=== PATIENT | male | born 2000 | race Two or more races ===

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

== ENCOUNTER 2021-10-12 15:18 | Emergency (ER) | payer MEDICAID ==
[~2021-10-12] VITALS: Ht 188 cm; Wt 113.4 kg
[2021-10-12] MEDS ORDERED: predniSONE 20 MG TABLET ONE (15:44)
[2021-10-12] MEDS ORDERED: ALBUTEROL FS 2.5 MG/3 ML VIAL.NEB NEB ONE (16:00)
[2021-10-12] MEDS ORDERED: predniSONE 20 MG TABLET PO ONE (16:00)
[2021-10-12] MEDS ORDERED: ALBUTEROL FS 2.5 MG/3 ML VIAL.NEB ONE (16:25)
[2021-10-12] MEDS ORDERED: PRED20TA PO (16:48)
[2021-10-12] MEDS ORDERED: ALBU18HF2 INH (16:48)
[2021-10-12 16:52] VITALS: BP 135/76
== END 2021-10-12 16:58 | disposition home or self-care (01) ==
LOC: ER 15:20
DX: J20.9 Acute bronchitis, unspecified (principal); R06.02 Shortness of breath; Z20.822 Contact with and (suspected) exposure to COVID-19; J45.909 Unspecified asthma, uncomplicated; Z87.891 Personal history of nicotine dependence
CPT/HCPCS: 71045; 94640; 94799; 99284; C9803; J7512; U0003

== ENCOUNTER 2025-03-31 13:37 | Emergency (ER) | payer MEDICAID ==
[~2025-03-31] VITALS: Ht 188 cm; Wt 87.1 kg
[~2025-03-31 13:37] MED LIST: ALBU18HF2 INH; OFLO5DRO5 LEFT EAR; PRED20TA PO
[2025-03-31] MEDS ORDERED: ACETAMINOPHEN ES 500 MG TABLET ONE (14:26)
[2025-03-31] MEDS ORDERED: MAG HYDROX/AL HYDROX/SIMETH 30 ML UDC ONE (14:26)
[2025-03-31] MEDS ORDERED: KETOROLAC TROMETHAMINE 15 MG/ML VIAL ONE (14:26)
[2025-03-31] MEDS ORDERED: LIDOCAINE VISCOUS 2% UD 15 ML UDC ONE (14:26)
[2025-03-31] MEDS ORDERED: ONDANSETRON HCL/PF 4 MG/2 ML VIAL ONE ×2 (14:26→16:32)
[2025-03-31] MEDS ORDERED: FAMOTIDINE/PF INJ 20 MG/2 ML VIAL IV ONE (14:27)
[2025-03-31] MEDS ORDERED: LORAZEPAM INJ 2 MG/ML VIAL ONE (14:27)
[2025-03-31 14:38] LABS: CALCIUM, SERUM 9.9 mg/dL (8.5-10.1); CREATININE 1.4 mg/dL (0.6-1.3); SODIUM SERUM 138.0 mmol/L (136-145); UREA NITROGEN, BLOOD 14.0 mg/dL (7-18)
[2025-03-31] MEDS: FAMOTIDINE/PF INJ 20 MG/2 ML VIAL IV ONE (14:41)
[2025-03-31] MEDS: LORAZEPAM INJ 2 MG/ML VIAL IV ONE (14:41)
[2025-03-31] MEDS: IV NS 0.9% 1,000 ML BAG IV ONE (14:41)
[2025-03-31] MEDS: KETOROLAC TROMETHAMINE 15 MG/ML VIAL IV ONE (14:42)
[2025-03-31] MEDS: ONDANSETRON HCL/PF 4 MG/2 ML VIAL IVP ONE ×2 (14:42→16:35)
[2025-03-31 14:44] LABS: ASPARTATE AMINOTRANSFERASE 14.0 U/L (15-37); INR 1.01 (0.91-1.10); TOTAL PROTEIN, SERUM 8.8 g/dL (6.4-8.2)
[2025-03-31] MEDS: LIDOCAINE VISCOUS 2% UD 15 ML UDC MM ONE (15:19)
[2025-03-31] MEDS: ACETAMINOPHEN ES 500 MG TABLET PO ONE (15:20)
[2025-03-31] MEDS: MAG HYDROX/AL HYDROX/SIMETH 30 ML UDC PO ONE (15:20)
[2025-03-31 15:42] LABS: PLATELET COUNT (AUTO) 419 K/uL (150-450); RED BLOOD CELL COUNT(AUTO) 5.69 MIL/uL (4.5-6.0); RED CELL DISTRIBUTION WIDTH 12.9 % (11.5-15.0); WHITE BLOOD COUNT (AUTO) 7.9 K/uL (4.3-11.0)
[2025-03-31] MEDS ORDERED: ONDA4TAB5 PO (16:29)
[2025-03-31] MEDS ORDERED: FAMO20TA80 PO (16:29)
[2025-03-31 17:01] VITALS: BP 125/81; TEMP 98.2; O2SAT 99
== END 2025-03-31 17:01 | disposition home or self-care (01) ==
LOC: ER 13:48
DX: F10.10 Alcohol abuse, uncomplicated (principal); R11.2 Nausea with vomiting, unspecified; F12.90 Cannabis use, unspecified, uncomplicated; J45.909 Unspecified asthma, uncomplicated; K29.70 Gastritis, unspecified, without bleeding; R00.2 Palpitations; Z79.52 Long term (current) use of systemic steroids
CPT/HCPCS: 99284; 96374; 96375; 96361; 93005 ×2; 96376; 85025; 80048; 83690; 80076; 36415; 84484; 85730; J1885; J2060; J1308; J2405 ×2; J7030